=== PATIENT | male | born 1945 | race Hispanic/Latino ===

== ENCOUNTER 2021-11-03 18:15 | Emergency (ER) | payer SELFPAY ==
--- NOTE | 2021-11-03 19:21 | Event Note ---
Date: 11/03/21 EMS documentation not available at time of chart dictation Verbal report received from emergency medical services. Medical screening examination note: 76-year-old gentleman, status post recent admission to [facility] [place], reportedly signed out AMA for hypertension, also has a history of A. fib on Coumadin, brought to the hospital by EMS with a complaint of anterior chest wall pain for a few days. EMS reports mild tachycardia in the field. Patient appears to be in A. fib on his monitor. EMS verbally reports to myself that whi le the patient is ANO x4, family feels like he is more confused than at baseline. Family not currently available at this time to talk to me. In the emergency room, the patient is breathing spontaneously, moving 4 extremities and in no acute distress. Obtain appropriate laboratory studies, EKG, chest x-ray, noncontrast CT scan of the brain. Detailed history and physical to be performed by oncoming provider. They will arrange ultimate disposition Vital Signs 11/03/21 18:41 Temperature 99.1 F Pulse Rate 110 H Respiratory 18 Rate Blood Pressure 176/110 [Left] O2 Sat by Pulse 95 Oximetry
[2021-11-03 21:41] LABS: Albumin 4.2 g/dL (3.9-5); Basophils # (Auto) 0.1 K/mm3 (0.0-0.1); Basophils % (Auto) 1.2 % (0.0-1.8); Eosinophils # (Auto) 0.1 K/mm3 (0.0-0.4); Eosinophils % (Auto) 1.5 % (0.0-4.3); Hematocrit 34.8 % (35.5-45.6); Hemoglobin 11.6 gm/dl (11.8-15.2); Lymphocytes # (Auto) 1.7 K/mm3 (1.2-5.4); Lymphocytes % (Auto) 20.4 % (13.4-35.0); Mean Corpuscular HGB Conc 34 % (32-34); Mean Corpuscular Volume 88 fl (84-94); Monocytes # (Auto) 0.8 K/mm3 (0.0-0.8); Monocytes % (Auto) 8.9 % (0.0-7.3); Platelet Count 215 K/mm3 (140-440); Red Blood Count 3.94 M/mm3 (3.65-5.03)
[2021-11-03 21:49] LABS: INR 2.55 (0.87-1.13)
[2021-11-03 21:50] LABS: Partial Thromboplastin Time 53.9 Sec. (24.2-36.6)
[2021-11-03 21:59] LABS: Calcium 9.1 mg/dL (8.4-10.2)
--- NOTE | 2021-11-03 22:14 | Cat Scan Report ---
CT HEAD WITHOUT CONTRAST INDICATION / CLINICAL INFORMATION: Altered Mental Status. TECHNIQUE: All CT scans at this location are performed using CT dose reduction for ALARA by means of automated exposure control. COMPARISON: None available. FINDINGS: BRAIN PARENCHYMA: No acute intracranial hemorrhage. No evidence of recent infarct. No mass effect or midline shift. Severe chronic small vessel ischemic changes with confluent areas of hypoattenuation w ithin the periventricular and subcortical white matter. 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 VENTRICULAR SYSTEM/EXTRA-AXIAL SPACES: Age-related cerebral atrophy. No extra-axial fluid collection. ORBITS: Normal as visualized. SKELETAL SYSTEM/SOFT TISSUES: Normal bones and soft tissues. PARANASAL SINUSES/MASTOID AIR CELLS: No significant abnormality. ADDITIONAL FINDINGS: None. IMPRESSION: 1. No acute intracranial findings. 2. Age-related cerebral atrophy and severe chronic ischemic changes as above. Signer Name: Ryan Lion MD Signed: 11/03/2021 10:09 PM Workstation Name: [id number]
[2021-11-03 22:25] LABS: Chol/HDL Ratio 2.41 %
[2021-11-03] MEDS ORDERED: METOPROLOL TARTRATE 5 MG/5 ML INJ IV ONE (22:43)
[2021-11-03] MEDS ORDERED: fentaNYL 100 MCG/2 ML INJ IV ONE (22:43)
[2021-11-03] MEDS ORDERED: NITROGLYCERIN 2% OINT 1 GM TP ONE (22:43)
[2021-11-03] MEDS ORDERED: ONDANSETRON 4 MG/2 ML INJ IV ONE (22:44)
--- NOTE | 2021-11-03 23:53 | XRay Report ---
XR chest 1V ap INDICATION / CLINICAL INFORMATION: Altered Mental Status. COMPARISON: None available. FINDINGS: SUPPORT DEVICES: None. HEART /PULMONARY VASCULATURE: Cardiac enlargement with pulmonary vasculature congestion. LUNGS / PLEURA: Diffuse increased interstitial prominence. No pneumothorax. ADDITIONAL FINDINGS: No significant additional findings. IMPRESSION: 1. Diffuse increased interstitial prominence throughout the lungs. Findings may reflect pulmonary rosmery ma in the setting of CHF/volume overload. Superimposed pneumonia cannot be excluded. Signer Name: Ryan Lion MD Signed: 11/03/2021 11:48 PM Workstation Name: [id number]
--- NOTE | 2021-11-04 05:24 | Emergency Department Report ---
ED General Adult HPI - General Chief complaint: Chest Pain Stated complaint: CHEST PAIN Time Seen by Provider: 11/03/21 22:35 Source: patient, EMS Mode of arrival: Stretcher Limitations: No Limitations - History of Present Illness Initial comments: PT ARRIVING FROM HOME FOR CP X3 DAYS. CONSTANT. WAS AT [place] FOR ONE WEEK, LEFT AMA A FEW DAYS AGO. -: Gradual, days(s) Location: chest Radiation: non-radiation Severity scale (0 -10): 8 Worsens with: none Associated Symptoms: chest pain. denies: denies other symptoms, confusion, cough, diaphoresis - Related Data Previous Rx's Medication Instructions Recorded Last Taken Type Aspirin 325 mg PO QDAY #30 tablet 04/25/15 Unknown Rx AtorvaSTATin [Lipitor] 40 mg PO QHS #30 tablet 04/25/15 Unknown Rx Clopidogrel [Plavix] 75 mg PO QDAY #30 tablet 04/25/15 Unknown Rx ISOSORBIDE MONOnitrate [Imdur ER] 30 mg PO QDAY #30 tablet 04/25/15 Unknown Rx Pantoprazole [Protonix TAB] 40 mg PO QDAY #30 tablet 04/25/15 Unknown Rx amLODIPine 10 mg PO QDAY #30 tablet 04/25/15 Unknown Rx carvediloL [Coreg] 12.5 mg PO BID #60 tablet 04/25/15 Unknown Rx hydrALAZINE [Apresoline TAB] 100 mg PO BID #60 tablet 04/25/15 Unknown Rx Allergies Allergy/AdvReac Type Severity Reaction Status Date / Time No Known Allergies Allergy Verified 04/22/15 11:26 ED Review of Systems ROS: Stated complaint: CHEST PAIN Other details as noted in HPI Constitutional: denies: chills, fever Eyes: denies: eye pain, eye discharge, vision change ENT: denies: ear pain, throat pain Respiratory: denies: cough, shortness of breath, wheezing Cardiovascular: denies: chest pain, palpitations Endocrine: no symptoms reported Gastrointestinal: denies: abdominal pain, nausea, diarrhea Genitourinary: denies: urgency, dysuria Musculoskeletal: denies: back pain, joint swelling, arthralgia Skin: denies: rash, lesions Neurological: denies: headache, weakness, paresthesias Psychiatric: denies: anxiety, depression Hematological/Lymphatic: denies: easy bleeding, easy bruising ED Past Medical Hx - Past Medical History Hx Hypertension: Yes Additional medical history: heart murmur - Social History Smoking Status: Former Smoker - Medications Home Medications: Home Medications Medication Instructions Recorded Confirmed Last Taken Type Aspirin 325 mg PO QDAY #30 tablet 04/25/15 Unknown Rx AtorvaSTATin [Lipitor] 40 mg PO QHS #30 tablet 04/25/15 Unknown Rx Clopidogrel [Plavix] 75 mg PO QDAY #30 tablet 04/25/15 Unknown Rx ISOSORBIDE MONOnitrate [Imdur ER] 30 mg PO QDAY #30 tablet 04/25/15 Unknown Rx Pantoprazole [Protonix TAB] 40 mg PO QDAY #30 tablet 04/25/15 Unknown Rx amLODIPine 10 mg PO QDAY #30 tablet 04/25/15 Unknown Rx carvediloL [Coreg] 12.5 mg PO BID #60 tablet 04/25/15 Unknown Rx hydrALAZINE [Apresoline TAB] 100 mg PO BID #60 tablet 04/25/15 Unknown Rx ED Physical Exam - General Limitations: No Limitations General appearance: alert, in no apparent distress - Head Head exam: Present: atraumatic, normocephalic - Eye Eye exam: Present: normal appearance - ENT ENT exam: Present: mucous membranes moist - Neck Neck exam: Present: normal inspection - Respiratory Respiratory exam: Present: normal lung sounds bilaterally. Absent: respiratory distress - Cardiovascular Cardiovascular Exam: Present: regular rate, normal rhythm. Absent: systolic murmur, diastolic murmur, rubs, gallop - GI/Abdominal GI/Abdominal exam: Present: soft, normal bowel sounds - Rectal Rectal exam: Present: deferred - Extremities Exam Extremities exam: Present: normal inspection - Back Exam Back exam: Present: normal inspection - Neurological Exam Neurological exam: Present: alert, oriented X3 - Psychiatric Psychiatric exam: Present: normal affect, normal mood - Skin Skin exam: Present: warm, dry, intact, normal color. Absent: rash ED Course Vital Signs 11/03/21 11/04/21 11/04/21 18:41 00:12 00:13 Temperature 99.1 F Pulse Rate 110 H 80 80 Respiratory 18 Rate Blood Pressure 167/85 167/85 Blood Pressure 176/110 [Left] O2 Sat by Pulse 95 Oximetry 11/04/21 11/04/21 11/04/21 03:14 06:04 06:16 Temperature 98.4 F 98.2 F Pulse Rate 75 80 Respiratory 11 L 17 Rate Blood Pressure Blood Pressure 164/71 153/98 [Left] O2 Sat by Pulse 98 96 96 Oximetry ED Medical Decision Making - Lab Data Result diagrams: 11/03/21 21:02 11/03/21 21:02 - EKG Data -: EKG Interpreted by Me EKG shows normal: sinus rhythm Rate: normal - EKG Data Interpretation: no acute changes, other (afib ) - Radiology Data Radiology results: report reviewed, image reviewed - Medical Decision Making work up unremarkable troponin is back second was negative , vss no distress pain imrpoved BP imrpoved Critical care attestation.: If time is entered above; I have spent that time in minutes in the direct care of this critically ill patient, excluding procedure time. ED Disposition Clinical Impression: Chest pain, Chronic kidney disease (CKD) stage G3b/A1, moderately decreased glomerular filtration rate (GFR) between 30-44 mL/min/1.73 square meter and albuminuria creatinine ratio less than 30 mg/g Disposition: 01 HOME / SELF CARE / HOMELESS Is pt being admited?: No Does the pt Need Aspirin: No Condition: Stable Instructions: Nonspecific Chest Pain, Adult Referrals: CEFERINO IVEY MD [Primary Care Provider] - 3-5 Days
[2021-11-04 06:15] VITALS: BP 153/98
--- NOTE | 2021-11-04 17:53 | Electrocardiograph Report ---
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
== END 2021-11-04 07:07 | disposition home or self-care (01) ==
LOC: ED 18:15
DX: R07.9 Chest pain, unspecified (principal); I12.9 Hypertensive chronic kidney disease with stage 1 through stage 4 chronic kidney disease, or unspecified chronic kidney disease; N18.32 Chronic kidney disease, stage 3b; R51.9 Headache, unspecified; R01.1 Cardiac murmur, unspecified; Z87.891 Personal history of nicotine dependence
CPT/HCPCS: 36415; 70450; 71045; 80053; 80061; 82140; 82550; 84443; 84484; 85025; 85610; 85730; 93005; 96374; 96375; 99285; J2405; J3010; 80320; G0480